=== PATIENT | male | born 1935 | race Caucasian/White ===

== ENCOUNTER 2017-02-13 10:23 | Emergency (ER) | payer MEDICARE ==
[2017-02-13 10:55] VITALS: BP 114/52
--- NOTE | 2017-02-13 11:36 | ERNOTE ---
Lower Extremity HPI - Narrative Date of Service: 02/13/17 - General Lower Extremities Pain: leg: left Time Seen by Provider: 02/13/17 11:09 Source: patient Exam Limitations: no limitations - Immun/Allergies/Home Medications Allergies/Adverse Reactions: Allergies Allergy/AdvReac Type Severity Reaction Status Date / Time No Known Allergies Allergy Verified 02/13/17 10:36 Home Medications: HOME MEDICATIONS Omeprazole 40 mg PO DAILY 02/06/13 [Last Taken Unknown] Simvastatin [Simvastatin (Zocor)] 40 mg PO HS 02/06/13 [Last Taken Unknown] clonazePAM [Klonopin Generic] 1 mg PO DAILY 02/06/13 [Last Taken Unknown] Pioglitazone HCl [Actos] 45 mg PO DAILY 07/03/13 [Last Taken Unknown] Diazepam [Valium] 10 mg PO DAILY PRN 02/24/14 [Last Taken Unknown] Cyclosporine [Restasis] 1 drop OP BID 04/30/16 [Last Taken Unknown] Fluticasone Propionate [Flonase Allergy Relief] 1 spray NS DAILY 04/30/16 [Last Taken Unknown] Glimepiride [Amaryl] 4 mg PO BID@0700,1700 04/30/16 [Last Taken Unknown] HYDROcodone/ACETAMINOPHEN [Lortab 5-325 mg Tablet] 1 each PO Q4H PRN 04/30/16 [ Last Taken Unknown] Loratadine/Pseudoephedrine [Claritin-D 24 Hour Tablet] 1 each PO DAILY 04/30/16 [Last Taken Unknown] Sulfamethoxazole/Trimethoprim [Bactrim Ds] 1 tab PO BID #28 tab 02/13/17 [Last Taken Unknown] - History of Present Illness Narrative: Pt. comes in with c/o L dorado wound for two weeks. Pt. states that it is overall improving. Pt. states that he had an insect bite on his L dorado that he scratched and opened up and since opening up it has turned red and become swollen. Pt. states that he has been dressing with bacitracin and gauze and it has improved but is not resolved. Pt. denies any fevers, SOB, CP, numbness, or tingling. Review of Systems - Review of Systems Constitutional: Present: no symptoms reported. Absent: recent illness, fever, chills, weakness, fatigue, malaise EYE: Present: no symptoms reported ENT: Present: no symptoms reported Respiratory: Present: no symptoms reported. Absent: shortness of breath, cough , wheezing Cardiology: Present: no symptoms reported Gastrointestinal/Abdominal: Present: no symptoms reported. Absent: nausea, vomiting, diarrhea, abdominal pain, drinking less Genitourinary: Present: no symptoms reported Musculoskeletal: Present: no symptoms reported. Absent: back pain, joint pain Skin: Present: lesions - scabbed over area to mid left dorado, change in color - redness L mid left dorado to ankle. Absent: rash, change in hair/nails Neurological: Present: no symptoms reported. Absent: headache, dizziness/light- headedness, numbness, tingling All Other Systems: All systems neg except as marked - Patient's Past Medical History Patient History - Medical: Anxiety, Diabetes Type 2, GERD Patient History - Cardiac/Respiratory: Hypertension, Hyperlipidemia Patient History - Cancer: No Hx of Cancer Patient History - Surgical Procedures: Cataracts, Cholecystectomy, Colonoscopy, EGD, Other Patient History - Other: None - Family History Mother Family History - Medical: , Diabetes Type 2 Family History - Cardiac/Respiratory: Other Father Family History - Medical: , No pertinent hx Family History - Cardiac/Respiratory: No pertinent hx - Social History Living Situations: alone Abuse History: No History of abuse Psych History: Hx of Anxiety Smoking Status: Never smoker Have you smoked in the past 12 months: No Alcohol Use: occasionally Drug Use: none Physical Exam - Physical Exam General Appearance: Present: wd/wn, alert, no apparent distress Eye Exam: Normal inspection: bilateral, PERRL: bilateral, EOMI: bilateral Neck: Present: normal inspection, nontender Respiratory: Present: no respiratory distress, normal breath sounds, no accessory muscle use, chest nontender, lungs clear Cardiovascular/Chest: Present: regular rate, rhythm, no murmur, normal peripheral pulses Back Exam: Present: normal inspection Extremity Exam: Present: normal range of motion, extremity edema - L. Absent: calf tenderness Neurological Exam: Present: alert, oriented, normal mood/affect, no motor/ sensory deficits Skin Exam: Present: warm/dry, other - erythema and edema LLE ED Progress - Vital Signs Patient's Vital Signs:: I have reviewed the patient's vital signs. Vital Signs: Vital Signs 02/13/17 02/13/17 10:33 10:54 Temperature 36.3 C L Pulse Rate 75 66 Respiratory 12 Rate Blood Pressure 138/71 114/52 O2 Sat by Pulse 99 97 Oximetry - Progress/Reassessment Chief Complaint: Lower Extremity Pain/ Injury Departure Clinical Impression: Cellulitis and abscess of left leg Insect bite Qualifiers: Encounter type: initial encounter Qualified Code(s): W57.XXXA - Bitten or stung by nonvenomous insect and other nonvenomous arthropods, initial encounter - Departure Disposition: Home self-care Condition: Good Instructions: Cellulitis, Adult, [id number] Additional Instructions: Please follow up with primary provider in 2-3 days. Continue the Bacitracin and dressing you have been doing and please follow up with primary provider in 2-3 days. Referrals: Romel Walsh MD [Primary Care Provider] - Prescriptions: Sulfamethoxazole/Trimethoprim [Bactrim Ds] 1 tab PO BID #28 tab
== END 2017-02-13 11:44 | disposition home or self-care (01) ==
LOC: ER 10:23
DX: L03.116 Cellulitis of left lower limb (principal); W57.XXXA Bitten or stung by nonvenomous insect and other nonvenomous arthropods, initial encounter; E11.9 Type 2 diabetes mellitus without complications; K21.9 Gastro-esophageal reflux disease without esophagitis; I10 Essential (primary) hypertension; E78.5 Hyperlipidemia, unspecified; F41.9 Anxiety disorder, unspecified

== ENCOUNTER 2017-07-01 12:32 | Day surgery (SDC) | payer MEDICARE ==
[~2017-07-01 12:32] MED LIST: RINGER'S SOLUTION,LACTATED 1,000 ML IV PRN
[2017-07-01] MEDS ORDERED: RINGER'S SOLUTION,LACTATED 1,000 ML IV ONE (13:22)
[2017-07-01] MEDS ORDERED: RINGER'S SOLUTION,LACTATED 1,000 ML IV PRN (14:32)
[2017-07-01] MEDS ORDERED: PANTOPRAZOLE SODIUM 40 MG/100 ML PIGGYBACK IV ONE (14:46)
[2017-07-01] MEDS ORDERED: PANTOPRAZOLE SODIUM 40 MG in NORMAL SALINE 100 ML IV ONE (14:50)
--- NOTE | 2017-07-01 16:08 | OR ---
Operative Report - Dictated Report Narrative: Operative Report Date of operation: 07/01/2017 Preoperative diagnosis: Esophageal stenosis Postoperative diagnosis: Esophageal diverticulum. Esophageal stenosis. Gastropathy (pathology and CLOtest pending) Operation: EGD with biopsy. Esophageal balloon dilation to 20 mm Surgeon: Dr Gordillo Anesthesia: HERSON ROLLINS CRNA Indications for procedure: Patient is an 81-year-old male referred by Dr. Walsh. The patient has a long history of dysphagia with previous esophageal dilation. He has had progressive dysphagia for solid foods and is brought for repeat exam Findings: Patulous esophagus with large diverticulum. Esophageal stenosis ( successfully dilated). Gastropathy (pathology and CLOtest pending) Narrative of procedure: The patient was identified preoperatively, and prior to the administration of anesthetic a multidisciplinary timeout was observed With the patient in the recumbent position, a bite-block was placed, intravenous sedation administered, and the patient's eyes covered with a towel. The flexible fiberoptic gastroscope was advanced into the posterior pharynx which appeared normal. The supraglottic larynx appeared normal. The cords appeared normal, moved well, and opposed in the midline. The scope was advanced under direct vision into the proximal esophagus which appeared normal. The esophagus appeared very patulous and was filled with saliva which was carefully suctioned. 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 The esophageal mucosa appeared normal down to the gastroesophageal junction which was very stenotic. The scope was advanced into the stomach which was insufflated with air. There was mild oliva gastric erythema but no tana ulcers or neoplastic lesions were appreciated including a retroflexed view of the gastric fundus which demonstrated the gastric side of the GE junction. Scope was redirected toward the pylorus. The pylorus appeared patent. The scope was advanced into the duodenal bulb which appeared normal. The scope was advanced further to the horizontal portion of the duodenum which appeared normal, specifically the villous architecture appeared well preserved and clear bile was present. The scope was slowly withdrawn through the duodenal bulb with confirmation that no active ulcer was present. The scope was withdrawn into the stomach and title insurance sales representative biopsies of gastric mucosa obtained for CLOtest and pathology. The biopsy sites were seen to be hemostatic. The insufflated air was removed from the stomach. A balloon dilator was deployed and withdrawn to lie across the GE junction which was then dilated in stages to 20 mm. The balloon then passed freely through the area. The area appeared hemostatic and more patulous. The scope was readvanced into the stomach which was empty of insufflated air. The scope was withdrawn from the patient, and the procedure terminated. The patient tolerated the anesthetic and procedure well without complication and was transferred back to the ambulatory surgery area awake and in stable condition. The patient remained stable throughout a period of postoperative observation, was able to tolerate po intake, and was up without assistance. I shared the operative findings with him, and he was given copies of the photographs which appear in the medical record. He was given a single dose of Protonix 40 mg IV prior to discharge. He was discharged home with instructions not to engage in hazardous activity today, but may return to normal activity tomorrow and advance diet as tolerated. He is to continue medications as listed in the history and physical exam. I made arrangements to contact the patient with the biopsy reports and will make further recommendation based upon that result. Reviewed and electronically signed
[2017-07-01 16:39] VITALS: BP 106/55
== END 2017-07-01 12:33 | disposition home or self-care (01) ==
LOC: AMB 12:32
PROVIDERS: ATTEND Surgery
PROC: 0D748ZZ Dilation of Esophagogastric Junction, Via Natural or Artificial Opening Endoscopic (ICD-10-PCS; 2017-07-01)
PROC: 0DB68ZX Excision of Stomach, Via Natural or Artificial Opening Endoscopic, Diagnostic (ICD-10-PCS; principal; 2017-07-01 14:15)
DX: K22.5 Diverticulum of esophagus, acquired (principal); K29.50 Unspecified chronic gastritis without bleeding; K22.2 Esophageal obstruction; E11.9 Type 2 diabetes mellitus without complications; K21.9 Gastro-esophageal reflux disease without esophagitis; I10 Essential (primary) hypertension; E78.5 Hyperlipidemia, unspecified; F41.1 Generalized anxiety disorder; Z87.891 Personal history of nicotine dependence; Z68.28 Body mass index [BMI] 28.0-28.9, adult

== ENCOUNTER 2018-04-30 12:58 | Observation (INO) | payer MEDICARE ==
[2018-04-30] MEDS: NORMAL SALINE 1,000 ML IV PRN (14:51)
[2018-04-30] MEDS ORDERED: DIAZEPAM 5 MG TABLET PO PRN (15:21)
[2018-04-30] MEDS ORDERED: ONDANSETRON 4 MG TAB.RAPDIS PO PRN (15:21)
[2018-04-30] MEDS ORDERED: BISMUTH SUBSALICYLATE 237 ML BTL PO PRN (15:22)
[2018-04-30] MEDS: metroNIDAZOLE 500 MG TABLET PO SCH ×2 (15:45→22:47)
[2018-04-30] MEDS: HYDROcodone/ACETAMINOPHEN 1 EACH TABLET PO PRN (15:49)
[2018-04-30 16:11] LABS: Hematocrit 38.1 % (42.0-52.0); Hemoglobin 12.4 gm/dL (13.5-18.0); Mean Cell Volume 102.7 fl (78-100); Mean Corpuscular Hemoglobin 33.4 pg (27-31); Mean Corpuscular Hgb Conc 32.5 g/dl (32-36); Mean Platelet Volume 10.6 fl (8-11.3); Neutrophil # 4.3 K/mm3 (1.3-6.0); Neutrophil % 67.8 % (42-75.0); Platelet Count 250 K/mm3 (150-450); Red Blood Count 3.71 M/mm3 (4.7-6.0); Red Cell Distribution Width 13.2 % (11.5-14.0); White Blood Count 6.3 K/mm3 (4.0-10.5)
--- NOTE | 2018-04-30 16:20 | PN ---
Subjective - Date and Time Seen Date: 04/30/18 Time: 16:18 Subjective Narrative: Same complain of weakness dizziness as described on history Objective - Vitals Vitals: Last Vital Signs Temp 36.1 C 04/30/18 15:11 Pulse 77 04/30/18 15:11 Resp 16 04/30/18 15:11 BP 133/65 04/30/18 15:11 Pulse Ox 97 04/30/18 15:11 Assessment/Plan - Problems/Diagnosis (1) Helicobacter pylori gastritis Problem: Acute Narrative: I will restart his low hydration And his start quadruple therapy for H. pylori because he continued to have problem of nausea vomiting and abdominal pain after triple therapy for H. pylori
[2018-04-30 16:24] LABS: Albumin * 3.1 gm/dl (3.4-5.0); Anion Gap 8.2 mmol/L (6.8-13.8); BUN/Creatinine Ratio 13.7 (9.0-21.6); Bilirubin, Total 0.5 mg/dL (0.0-1.1); Ca. Corrected For Albumin 8.9 mg/dL (8.4-10.2); Calcium * 8.5 mg/dL (7.9-10.9); Carbon Dioxide 29.5 mmol/L (24-32.6); Potassium 3.7 mmol/L (3.4-4.6); Total Protein 6.5 gm/dL (6.2-8.2)
[2018-04-30 19:46] LABS: Hemoglobin A1C 7.5 % (4.00-6.0)
[2018-04-30] MEDS: PANTOPRAZOLE SODIUM 40 MG TABLET.EC PO SCH (20:12)
[2018-04-30] MEDS: BISMUTH SUBSALICYLATE 237 ML BTL PO SCH (20:12)
[2018-04-30] MEDS: POLYMYXIN B SULF/TRIMETHOPRIM 100 DROP BTL OP SCH (20:18)
[2018-04-30] MEDS: DOXYCYCLINE HYCLATE 100 MG TABLET PO SCH (20:18)
[2018-04-30] MEDS: OMEPRAZOLE 20 MG CAPSULE.SA PO SCH (20:18)
[2018-04-30] MEDS ORDERED: clonazePAM 1 MG TABLET PO SCH (21:00)
[2018-04-30] MEDS ORDERED: metroNIDAZOLE 500 MG TABLET PO SCH (21:00)
[2018-04-30] MEDS ORDERED: SIMVASTATIN 40 MG TABLET PO SCH (21:00)
[2018-05-01] MEDS: metroNIDAZOLE 500 MG TABLET PO SCH (06:41)
[2018-05-01] MEDS: PANTOPRAZOLE SODIUM 40 MG TABLET.EC PO SCH (06:41)
[2018-05-01] MEDS: HYDROcodone/ACETAMINOPHEN 1 EACH TABLET PO PRN ×2 (06:41→11:54)
[2018-05-01] MEDS: NORMAL SALINE 1,000 ML IV PRN (07:49)
--- NOTE | 2018-05-01 08:34 | DS ---
(1) Helicobacter pylori gastritis Problem: Acute (2) Dehydration Problem: Acute Description of Stay: This 82-year-old white male was admitted because of severe weakness and dehydration. She was recently diagnosed and treated for H. pylori gastritis initially with the triple therapy but continued to have problem of nausea vomiting and abdominal pain in spite of the treatment. He was admitted to short stay and was given some IV fluid. He will be started for treatment of H. pylori with quadruple therapy consisting of Bismuth, Flagyl, Vibramycin and omeprazole. This morning he is feeling better and able to eat breakfast so he will be discharged after lunch Procedures Performed: none Results and Findings: Lab Pending Results 04/30/18 16:04: Sodium 137, Plasma Sodium 139, Potassium 3.7, Chloride 103, Carbon Dioxide 29.5, Anion Gap 8.2, BUN 10, Creatinine 0.73, Est GFR (Non-Af Amer) 109, BUN/Creatinine Ratio 13.7, Random Glucose 214 H, Calcium 8.5, Calcium Adj for Albumin 8.9, Total Bilirubin 0.5, AST 22, ALT 20, Alkaline Phosphatase 78, Total Protein 6.5, Albumin 3.1 L 04/30/18 16:04: ESR 35 H 04/30/18 16:04: WBC 6.3, RBC 3.71 L, Hgb 12.4 L, Hct 38.1 L, MCV 102.7 H, MCH 33.4 H, MCHC 32.5, RDW 13.2, Plt Count 250, MPV 10.6, Immature Gran % (Auto) 0.30, Immature Gran # (Auto) 0.02, Neutrophils % 67.8, Lymphocytes % 21.6, Monocytes % 9.5 H, Eosinophils % 0.5, Basophils % 0.3, Nucleated RBC % 0.0, Neutrophils # 4.3, Lymphocytes # 1.37 L, Monocytes # 0.6, Eosinophils # 0.0, Absolute Basophils 0.0 04/30/18 16:04: Mean Blood Glucose 164, Hemoglobin A1c 7.5 H Discharge Location: Home Disposition: Home self-care Condition: Fair Face to Face Encounter completed per CMS Guidelines: Yes Discharge Activity: Activity as tolerated Discharge Diet: General/regular food Referrals: Romel Walsh MD [Primary Care Provider] - Additional Patient Instructions (free text): -Please make TCM appointment unless jail discharge. Thank you! Dary @ [phone]. Complete Home Medications List: Complete Home Medication List: Simvastatin [Simvastatin (Zocor)] 40 mg PO HS 02/06/13 Diazepam [Valium] 10 mg PO Q4H PRN 02/24/14 Cyclosporine [Restasis] 1 drp OP BID 04/30/16 Venlafaxine HCl [Effexor] 75 mg PO DAILY 02/13/18 Famotidine [Pepcid] 40 mg PO HS #30 tab 03/17/18 Ondansetron [Zofran Odt] 4 mg PO Q6H PRN #10 tab 03/17/18 Sulfamethoxazole/Trimethoprim [Bactrim Ds] 1 tab PO BID #28 tab 03/17/18 clonazepam 1 mg tablet 1 mg PO HS #30 tab 04/24/18 hydrocodone 5 mg-acetaminophen 325 mg tablet 1 tab PO Q4H PRN #40 tab 04/24/18 Glimepiride 4 mg PO BID 04/30/18 Loratadine/Pseudoephedrine [Loratadine-D 24Hr Tablet] 1 each PO DAILY 04/30/18 Omeprazole 40 mg PO BID 04/30/18 Polymyxin B Sulf/Trimethoprim [Polytrim Eye Drops] 1 drop OP QID 04/30/18 Tetracycline HCl 500 mg PO QID 04/30/18 metroNIDAZOLE [Metronidazole] 750 mg PO QID 04/30/18
[2018-05-01] MEDS: DOXYCYCLINE HYCLATE 100 MG TABLET PO SCH (08:38)
[2018-05-01] MEDS: BISMUTH SUBSALICYLATE 237 ML BTL PO SCH (08:39)
[2018-05-01] MEDS ORDERED: LORATADINE D PO SCH (09:00)
[2018-05-01] MEDS ORDERED: GLIMEPIRIDE 4 MG TABLET PO SCH (09:00)
[2018-05-01] MEDS ORDERED: VENLAFAXINE HCL 75 MG TABLET PO SCH (09:00)
[2018-05-01] MEDS: OMEPRAZOLE 20 MG CAPSULE.SA PO SCH (10:06)
[2018-05-01] MEDS: POLYMYXIN B SULF/TRIMETHOPRIM 100 DROP BTL OP SCH (10:09)
[2018-05-01 13:14] VITALS: BP 106/55
== END 2018-05-01 13:00 | disposition home or self-care (01) ==
LOC: CCFAL → MS 12:58
PROVIDERS: ADMIT Internal Medicine; ATTEND Internal Medicine
DX: K29.60 Other gastritis without bleeding; Z68.23 Body mass index [BMI] 23.0-23.9, adult; E11.9 Type 2 diabetes mellitus without complications; K21.9 Gastro-esophageal reflux disease without esophagitis; B96.81 Helicobacter pylori [H. pylori] as the cause of diseases classified elsewhere; E86.0 Dehydration; R11.2 Nausea with vomiting, unspecified; I10 Essential (primary) hypertension
CPT/HCPCS: 36415; 74019; 74020; 80053; 83036; 85025; 85652; 96360; 96361; G0378; G0379